=== PATIENT | male | born 1950 | race Caucasian/White ===

== ENCOUNTER → 2016-09-06 | Day surgery (SDC) | payer MEDICARE, OTHER ==
[~2016-09-06] MED LIST: ADVAIR 250-501 EAC1 IH; ALBUTEROL17 GM INH; ALEVE PO; ALLER-TEC10 M1 PO; AMIODARONE PO; ASPIRIN EC81 M1 PO; ASPIRIN PO; B12 INJECTION; BENTYL10 MG PO; BENZONATATE200 M1 PO; CERTAGEN PO; CHERATUSSIN AC118 ML PO; CLEOCIN150 MG PO; COMBIVENT MININEB INH; CYANOCOBAL1000 MCG/M INJ; DAZIDOX10 MG PO; DRONABINOL5 MG PO; DULCOLAX5 M1 PO; ELIQUIS5 MG PO; FISH OIL 1,0001 CAP PO; FOLIC ACID1 MG PO; GABAPENTIN600 MG PO; GRANISETRON SQ; GUAIATUSSIN AC L5 ML PO; GUAIFENESIN W-120 ML PO; HYDROCODON-ACE1 EAC5 PO; HYDROCODON-ACE1 EAC7 PO; HYDROCODONE-APA1 T55 PO; HYDROCODONE-CH473 ML PO; IPRAT-ALBUT 0.5-3 ML INH; LANOXIN125 MCG PO; LEVAQUIN750 MG PO; LEVOFLOXACIN500 MG PO; LOPRESSOR PO; MEDI-MECLIZINE25 M1 PO; MEGACE ORA40 MG/ML S PO; METOPROLOL SUCC25 MG PO; METOPROLOL TART25 MG PO; MILK OF MAGNESIA PO; MOBIC PO; MORPHINE SULFAT15 M1 PO; MUCUS RELIEF600 M1 PO; MULTI VITAMIN1 EACH PO; MULTIVITAM1 TAB.CH11 PO; NEURONTIN PO; NICOTINE TRANSD14 MG EXT; NORCO1 TAB 10/3 PO; OMEPRAZOLE40 M1 PO; OMNICEF300 MG PO; ONDANSETRO8 MG/UDTAB PO; PREDNISONE PO; PREDNISONE10 MG/DOSE PO; ROPINIROLE HCL0.5 MG PO; SYMBICORT INH; SYMBICORT80 INH; TECENTRIQ1200 MG/20; THIAMINE HCL100 M1 PO; TIZANIDINE HCL4 M1 PO; TOPROL XL PO; UNKNOWN BP MED; VITAMIN B-1000 MCG/1 INJ; VITAMIN D31000 UNI2 PO; XANAX0.5 MG PO; XANAX1 MG PO; ZANAFLEX4 M1 PO; [UNRECOGNIZED DRUG - OTHER] MC
--- NOTE | ~2016-09-06 | OR ---
Unit #: [id number] #: [id number] Patient: YVETTE THORNE [id number] [address] [place], [place] [address] [id number] O MR#: [id number] NAME: YVETTE THORNE ROOM: Date of Procedure: 09/06/2016 Admission Date: 09/06/2016 Surgeon: Walt Tatum M.D. : 1950 Attending Physician: Walt Tatum M.D. Referring Physician: Walt Tatum M.D. Primary Care Physician: Yola Rosenthal M.D. OPERATIVE REPORT PROCEDURE PERFORMED Bronchoscopy. INDICATIONS FOR PROCEDURE Known lung cancer with right lower lobe probable obstruction. INTRAOPERATIVE FINDINGS Right lower lobe partly obstructed by tumor and reaction to therapy. POSTOPERATIVE DIAGNOSIS Right lower lobe partly obstructed by tumor and reaction to therapy. DESCRIPTION OF PROCEDURE Mr. Thorne was brought to endoscopy suite and given anesthesia via a MAC. The scope was placed orally via a bite block after appropriate time-out was called. Vocal cords were within normal limits, but he had a fair amount of clear secretion above the vocal cords that I had to suction out before even went through the cords. His trachea was basically normal. His main samantha was little bit widened and there is some white necrotic looking areas on the right medial aspect of the main samantha. The left upper lobe including the lingula and left lower lobe were all within normal limits except for just a little bit of clear mucus plugging. The right lung starting at the mainstem was entirely distorted. The mucosa was erythematous, friable with intervening white necrotic scar like areas. I could actually see over a lot of this white scar like area into what appeared to be the opening for the right upper lobe, but I could not get around it to see how open it really was. Actually, it looked a little bit more open than previous views, but I could not get close enough to tell. The bronchus intermedius is definitely narrowed and it is lined by clearly abnormal mucosa with intervening areas as mentioned before of white scar like necrotic areas and red erythematous friable areas. Distal bronchus intermedius is quite distorted and the opening to what I assume to be the right lower lobe is present, but quite narrowed. I could not get the therapeutic scope down deep enough to really recognize subsegmental bronchi. Nonetheless, I really felt that was going to the right lower lobe. I therefore performed bronchial dilatation using the CRE balloon first to 6 and then to 7 x2. There did not seem to be any complications from this and bleeding from the balloon was very minimal. After the dilatation, the opening to the bronchus intermedius looked a little bit better to me; although, I really still did not try to push the therapeutic scope all the way down partly, because of some friability issues. This was simply washed again and I halted the procedure. I had some Unit #: [id number] #: [id number] Patient: YVETTE THORNE consideration of debriding some of this white scar like material, but after the balloon dilatation, this material was pushed up against the wall and really was not blocking the lumen anymore. Therefore, I left that alone. No obvious complications were noted from this procedure, but I will check a chest x-ray. Dictated by... Nevin Bland/tej TD: 09/06/2016 13:04 JOB #: [id number] CC: Schuyler Houser M.D. OPERATIVE REPORT X Walt Tatum MD X PROCEDURE OPERATIVE NOTE
--- NOTE | ~2016-09-06 | CR72 ---
[facility] A Service of [facility] & [facility] RADIOLOGY TEXT RESULTS PATIENT: YVETTE THORNE LOCATION: [employer]GER : [birth year] UNIT #: [id number] AGE: [address]: Walt Tatum MD SEX: M ORDER DR: [id number] [facility] [address] [facility]. [place], [place] [address] [id number] O MR#: [id number] Acc #: [id number] NAME: YVETTE THORNE : 1950 SEX: M STUDY DATE/TIME: 09/06/2016 13:04 UNIT: [facility] ROOM: STUDY DESCRIPTION: CR Chest Single View Portable Attending Physician: Walt Tatum M.D. Referring Physician: Walt Tatum M.D. Ordering Physician: Walt Tatum M.D. Primary Care Physician: Yola Rosenthal M.D. MEDICAL IMAGING REPORT This report is preliminary unless electronic signature is present INDICATION Pneumonia. Shortness of air. EXAM Single portable AP view of the chest. COMPARISON 08/27/2016 FINDINGS Abnormal right mediastinal border is unchanged from the prior study. There is volume loss in the right hemithorax as well as tenting of the right hemidiaphragm. This is unchanged from the prior study. Left lung is clear. IMPRESSION 1. No interval change. Abnormal right hilar border due to a right hilar/mediastinal mass. 2. No new pulmonary findings. Dictated by... Jasvir Ren M.D. THIS IS AN ELECTRONICALLY VERIFIED REPORT Jasvir Ren M.D. at 09/07/2016 10:52 AM CHRISTIANO/nisreen TD: 09/06/2016 14:56 JOB #: [id number] MEDICAL IMAGING REPORT COPY
== END | disposition home or self-care (01) ==
LOC: COPS 09:40
DX: C34.31 Malignant neoplasm of lower lobe, right bronchus or lung (principal)
CPT/HCPCS: 71010; 87070; 87205; 88108; 88305; J0171

== ENCOUNTER → 2016-09-24 | Outpatient (CLI) | payer MEDICARE, OTHER ==
--- NOTE | ~2016-09-24 | CT55 ---
[facility] A Service of [facility] & [facility] RADIOLOGY TEXT RESULTS PATIENT: YVETTE THORNE LOCATION: CCAT : [birth year] UNIT #: [id number] AGE: [address]: Julio Ash MD SEX: M ORDER DR: [id number] [facility] [address] [place], [place] [address] [id number] O MR#: [id number] Acc #: [id number] NAME: YVETTE THORNE : 1950 SEX: M STUDY DATE/TIME: 09/24/2016 10:59 UNIT: [facility] ROOM: STUDY DESCRIPTION: CT Chest W Con Attending Physician: Julio Ash M.D. Referring Physician: Julio Ash M.D. Ordering Physician: Julio Ash M.D. Primary Care Physician: Yola Rosenthal M.D. MEDICAL IMAGING REPORT This report is preliminary unless electronic signature is present EXAM Chest CT with contrast. DATE OF EXAM 09/24/2016 HISTORY Lung cancer. Evaluate for progression of malignancy. COMPARISON Comparison examination from 08/23/2016. TECHNIQUE Axial images were obtained with contrast. 100 mL of Isovue was used. Images were evaluated at lung and mediastinal windows. NOTE: This CT exam was performed with one or more of the following radiation dose reduction techniques: automatic exposure control, adjustment of mA and/or kV according to patient size, and iterative reconstruction. FINDINGS Chest images at mediastinal window show a stent in the superior vena cava. The stent is crimped, but does not appear be completely collapsed. A large mass is seen occupying the right side of the mediastinum and the right hilum. There is extrinsic compression of the right pulmonary artery and deformity of the pulmonary veins. There is atelectasis of the right upper lobe. Maximum diameter of the mediastinal component of the mass is 4.5 x 6 cm. This compares with 4.4 x 4.9 cm on the previous examination. In the right suprahilar area, there is a cavitary lesion that contains fistulous communication with the bronchial tree on the right. The cavitary component of this area has increased since the previous exam. No new or enlarging mediastinal lymph nodes are seen. There is a trace right pleural effusion. It was present before. No additional mass lesions are seen elsewhere. Fibrotic changes are noted at both lung bases. [facility]. [facility] A Service of [facility] RADIOLOGY TEXT RESULTS PATIENT: YVETTE THORNE LOCATION: [facility] : [birth year] UNIT #: [id number] AGE: [address]: Julio Ash MD SEX: M ORDER DR: infiltrates are less prominent than on the previous examination. This could reflect partial resolution of lymphangitic carcinomatosis or partial resolution of acute superimposed inflammatory component. IMPRESSION 1. Large mass right mediastinum surrounding the superior vena cava and right pulmonary artery and to a lesser extent surrounding the pulmonary veins on the right. The mass has enlarged significantly since the previous examination. 2. Progressive cavitation of the right upper lobe just above the hilum associated with this mass. 3. Infiltrates at both lung bases are still seen but show improvement since the previous examination. 4. Trace right pleural effusion is unchanged. Dictated by... Brian Kimble M.D. THIS IS AN ELECTRONICALLY VERIFIED REPORT Brian Kimble M.D. at 09/29/2016 5:01 AM THUY/nicole TD: 09/24/2016 20:57 JOB #: [id number] MEDICAL IMAGING REPORT COPY
--- NOTE | ~2016-09-24 | CT2 ---
[facility] A Service of [facility] RADIOLOGY TEXT RESULTS PATIENT: YVETTE THORNE [facility] [birth year] UNIT #: [id number] AGE: [address]: Julio Ash MD SEX: M ORDER DR: [id number] [facility] [address] [facility]. [place], [place] [address] [id number] O MR#: [id number] Acc #: [id number] NAME: YVETTE THORNE : 1950 SEX: M STUDY DATE/TIME: 09/24/2016 10:59 UNIT: [facility] ROOM: STUDY DESCRIPTION: CT Abd and Pelv W Cont Attending Physician: Julio Ash M.D. Referring Physician: Julio Ash M.D. Ordering Physician: Julio Ash M.D. Primary Care Physician: Yola Rosenthal M.D. MEDICAL IMAGING REPORT This report is preliminary unless electronic signature is present EXAM Abdomen and pelvis CT with contrast HISTORY Weakness for the past 2-3 months. Known lung cancer. Evaluate for abdomen or pelvis malignancy suspected. TECHNIQUE Axial images were obtained with intravenous contrast. 100 cc of Isovue was used. This CT exam was performed with one or more of the following radiation dose reduction techniques: automatic exposure control, adjustment of mA and/or kV according to patient size, and iterative reconstruction. COMPARISON STUDIES Study is correlated with a PET/CT scan 07/29/2016. FINDINGS No upper abdominal solid organ abnormalities are seen. There is no evidence of retroperitoneal adenopathy or ascites and no distended bowel loops are seen. In the pelvis, there is no evidence of adenopathy, mass or fluid collection. Advanced lumbar degenerative disc disease is seen. No destructive bone lesions are noted. IMPRESSION No evidence of metastatic disease in the abdomen or pelvis. [facility] A Service [facility] & [facility] RADIOLOGY TEXT RESULTS PATIENT: YVETTE THORNE [facility] : [birth year] UNIT #: [id number] AGE: [address]: Julio Ash MD SEX: M ORDER DR: Dictated by... Brian Kimble M.D. THIS IS AN ELECTRONICALLY VERIFIED REPORT Brian Kimble M.D. at 09/29/2016 5:01 AM RLF/jayce TD: 09/24/2016 20:35 JOB #: [id number] MEDICAL IMAGING REPORT COPY
== END | disposition home or self-care (01) ==
LOC: CCAT 10:06
DX: C34.91 Malignant neoplasm of unspecified part of right bronchus or lung (principal); D70.8 Other neutropenia; E83.110 Hereditary hemochromatosis; R91.8 Other nonspecific abnormal finding of lung field
CPT/HCPCS: 71260; 74177; Q9967

== ENCOUNTER 2016-10-07 15:33 | Inpatient (IN) | payer MEDICARE, OTHER ==
--- NOTE | ~2016-10-07 | HP ---
Unit #: [id number] #: [id number] Patient: YVETTE THORNE [id number] [address] [place], [place] [address] [id number] I MR#: [id number] NAME: YVETTE THORNE ROOM: 323 Age: 66 Sex: M Admission Date: 10/07/2016 : 1950 Attending Physician: Jovani Irwin M.D. Primary Care Physician: Yola Rosenthal M.D. HISTORY AND PHYSICAL ADMISSION DIAGNOSES 1. Hemoptysis. 2. Anemia. 3. History of lung cancer. 4. History of atrial fibrillation, on chronic anticoagulation. 5. History of coronary artery disease. 6. History of anxiety. 7. History of superior vena cava syndrome. 8. Hypertension. 9. History of alcohol abuse. HISTORY OF PRESENT ILLNESS Mr. Thorne is a very nice 66-year-old gentleman well known to our service secondary to prior admissions. He was discharged most recently from our service from August of this year. Comes back to the emergency room with complaints of hemoptysis. On initial evaluation in the emergency room, patient found with the hemoglobin of 7.0. Chest x-ray showed some questionable right lower lung infiltrate. The patient denies any fever, chills, and denies any nausea or vomiting. Denies any active chest pain, headache, dizziness, nausea, vomiting, diarrhea or abdominal pain. REVIEW OF SYSTEMS Negative except as above. PAST MEDICAL HISTORY Significant for: 1. History of lung cancer. 2. History of COPD. 3. History of tobacco use. 4. History of anxiety. 5. History of chronic pain issues. 6. History of coronary artery disease and atrial fibrillation. 7. History of superior vena cava syndrome. 8. History of hypertension. 9. History of alcohol abuse. PAST SURGICAL HISTORY Significant for ankle surgery. HOME MEDICATIONS Don't have any (1) ), but this will be verified by the pharmacy, and patient will be restarted accordingly. Unit #: [id number] #: [id number] Patient: YVETTE THORNE ALLERGIES Allergic to Wellbutrin. SOCIAL HISTORY No current history of tobacco, alcohol or illicit drugs. FAMILY HISTORY Unremarkable. PHYSICAL EXAMINATION GENERAL: Patient is a 66-year-old gentleman in no acute distress. VITAL SIGNS: BP 102/65, heart rate 86, respirations 13, temperature 98. HEENT: Head is atraumatic. Pupils equal, round and reactive to light and accommodation. Extraocular muscles intact. Oropharynx clear. NECK: Supple. No masses, no JVD, no bruits. CHEST: Diminished bilaterally, right definitely more than left. ABDOMEN: Soft, nontender, nondistended. EXTREMITIES: Lower extremities without any cyanosis, clubbing or edema. NEUROLOGICAL: Patient is grossly intact. No focal deficits. DIAGNOSTIC STUDIES IMAGING: Chest x-ray as above. LABORATORY: Chemistry unremarkable. Coagulation - PT 14.5, INR 1.4, PTT 30.1. Hematology as above. White count 17.9. ASSESSMENT AND PLAN 1. Hemoptysis with patient's known history of lung cancer: Will monitor H and H. Pulmonary, Dr. Francois and Dr. Tatum, to follow since they are patient's primary pulmonologists. Will discuss with cardiology regarding possibility of holding Eliquis. He is getting transfusion in the ER. Further recommendations per pulmonology. 2. Questionable pneumonia with white count of 17.9: Again, this could be just hemoptysis accumulation around the cancer. It looks like he does not look toxic to me. Need a (2) per ER physician. Again, will defer to pulmonology for antibiotics. Will check procalcitonin level. 3. History of coronary artery disease and atrial fibrillation: Was on chronic anticoagulation with Eliquis. Will consult Dr. Allen for possibly holding Eliquis. 4. History of hypertension: Continue home meds. 5. History of anxiety and depression: Continue home meds. 6. Remote history of alcohol abuse and tobacco use. 7. History of superior vena cava syndrome in the past. 8. History of chronic pain. 9. GI and DVT prophylaxis: Will put on PPI and put on SCDs. Dictated by Nevin Peterson Unit #: [id number] #: [id number] Patient: YVETTE THORNE TD: 10/08/2016 05:00 JOB #: [id number] HISTORY AND PHYSICAL X Jovani Irwin MD HISTORY AND PHYSICAL
--- NOTE | ~2016-10-07 | CO ---
Unit #: [id number] #: [id number] Patient: YVETTE THORNE [id number] [address] [id number] [facility]. [place], [place] [address] [id number] Demian MR#: [id number] NAME: YVETTE THORNE ROOM: 323 Age: 66 Sex: M Admission Date: 10/07/2016 : 1950 Attending Physician: Jovani Irwin M.D. Primary Care Physician: Yola Rosenthal M.D. CONSULTATION REPORT We were asked to see him by Dr. Irwin. REASON FOR CONSULTATION Hemoptysis and possible pneumonia. HISTORY OF PRESENT ILLNESS Mr. Thorne is a 66-year-old male, well known to me with a right lung cancer that is now recurrent. When I did the original bronchoscopy, he had subtotal obstruction of the right upper lobe and actually subtotal obstruction of the right middle lobe. This turned out to be non-small cell lung cancer. This was done on 04/06/2014. He underwent chemo and XRT and actually he did remarkably well. However, may be a couple of months ago, he started to deteriorate again. I did bronchoscopy on 09/06/2016 and he had severe distortion of the right lung. Mucosa was erythematous and friable with inter-weaning scar like areas, I really only got to see one bronchus. I did see a little bit into the right upper lobe, but what I am assuming was the bronchus intermedius was narrowed inline by this abnormal mucosa. Even the right lower lobe assumed to be the right lower lobe was narrowed. I did balloon it at that time, and he seemed to do okay for a little while, but it is also notable that a CAT scan at about this time had revealed worsened right mediastinal adenopathy with compression of the superior vena cava and he required a stent. He now has been noted to cough up some blood. Frankly, he is color blind and he really could not tell himself. He could not tell me what the sputum look like before he started coughing up blood. In fact, it was his who noted that he was coughing up blood. It is notable that she had also noticed that he seemed to have a little bit of blood per rectum lately. He is complaining of chest pain, fever, chills. PAST MEDICAL HISTORY Other past medical history is significant for as mentioned non-small cell lung cancer which was squamous, unresectable at that time. Probable COPD. He had PFTs in the office that revealed an FEV1 of 2.75, 71% predicted, and FVC 67% predicted ratio of 84, which is really more restrictive, but he probably did really have COPD. History of hypertension, low-back pain, tachycardia and actually he had atrial fibrillation, near syncope in the past. MEDICATIONS On admission had included Combivent q.4 p.r.n., Symbicort 2 puffs b.i.d. it should be 160/4.5. He had been on prednisone regularly. Amiodarone 200 mg p.o. b.i.d., Eliquis 5 mg p.o. b.i.d., Megace 40 mg p.o. b.i.d., guaifenesin with codeine p.r.n., Xanax 1 mg p.o. daily, Lanoxin 0.125 mg daily, Lortab 10/325 q.4 p.r.n., morphine p.r.n., oxycodone p.r.n., Unit #: [id number] #: [id number] Patient: YVETTE THORNE omeprazole 40 mg p.o. daily, Zanaflex 4 mg p.o. q.h.s. ALLERGIES Bupropion. SOCIAL HISTORY He had smoked up until recently even as recent as June and probably quit finely in June. FAMILY HISTORY Significant for nobody with lung disease. SYSTEMS REVIEW He has had leg swelling. Appetite has been poor. He has been trying to drink boost. Some nausea. No vomiting. No diarrhea. Occasional joint aches. All other systems are negative except as mentioned. Family says that he has been confused lately. PHYSICAL EXAMINATION GENERAL: He presents as an older male, in no acute distress. VITAL SIGNS: Temperature was 98.1, pulse 83, respirations 14, blood pressure 74/62. NECK: Without adenopathy. LUNGS: Evaluation of his lungs reveals that his breathing is not labored. He had inspiratory and expiratory rhonchi bilaterally throughout, better breath sounds on the left than the right. HEART: Actually regular with ectopy. ABDOMEN: Soft and nontender. EXTREMITIES: Reveal 2+ edema. NEUROLOGIC: He is awake and alert. DIAGNOSTIC STUDIES IMAGING STUDIES: Chest x-ray to my exam reveals a prominent right hilum. He has evidence of atelectasis right upper lobe. He has a right lower lobe infiltrate that actually is new. This was not seen. After the bronchoscopy, I did most recently in 08/2016. LABORATORY RESULTS: His white blood cell count on admission was 17.9, H and H 7 and 22, 218,000 platelets. His serum chemistry significant for BUN 22, creatinine 0.7, and bicarb 25. IMPRESSION 1. Hemoptysis. 2. Possible pneumonia. It is hard to say that this is an atelectasis, but certainly he did not have this after I did a bronchoscopy last month. 3. Right lung squamous cell carcinoma, unresectable and recurrent. 4. Anorexia. PLAN I would watch the hemoptysis for now. If he continues to cough up blood, then he will need an embolization. I am not sure there is much we can do with the scope that will help his hemoptysis right now. I agree with the concept of antibiotics. I would give him cefepime and one dose of vancomycin. Looking at his BUN and creatinine, we can probably do cefepime at least 2 g IV q.12, and then vancomycin only x1. I would like to hold the Eliquis if possible. Unit #: [id number] #: [id number] Patient: YVETTE THORNE Dictated by... Nevin Bland/tej TD: 10/08/2016 07:47 JOB #: [id number] CONSULTATION REPORT X Walt Tatum MD X CONSULTATION REPORT
--- NOTE | ~2016-10-07 | DS ---
Unit #: [id number] #: [id number] Patient: YVETTE THORNE [id number] [address] [address] [id number] I MR#: [id number] NAME: YVETTE THORNE ROOM: 323 Age: 66 Sex: M Admission Date: 10/07/2016 : 1950 Discharge Date: 10/08/2016 Attending Physician: Jovani Irwin M.D. Primary Care Physician: Yola Rosenthal M.D. DISCHARGE SUMMARY SHORT STAY SUMMARY Please add this addendum to H and P I dictated for this patient at the time of admission and make the summary as a short stay summary. DISCHARGE DIAGNOSIS Progressing lung cancer. SECONDARY DIAGNOSES 1. Hemoptysis. 2. Respiratory failure. CONSULTS DURING THIS HOSPITAL STAY 1. Dr. Tatum - Pulmonary. 2. Dr. Julio Ash - Oncology. The patient was evaluated by Dr. Ash from Oncology. Due to progressing lung cancer and rapid decline in general health of the patient, the patient was discharged home with hospice. Dr. Julio Ash wrote all the comfort measure medications at the time of the discharge. Dictated by... Jovani Irwin M.D. OC/df TD: 10/09/2016 09:32 JOB #: [id number] DISCHARGE SUMMARY X Jovani Irwin MD DISCHARGE SUMMARY
--- NOTE | ~2016-10-07 | EKG ---
PATIENT: YVETTE THORNE UNIT #: [id number] Ventricular Rate: 68 BPM Atrial Rate: 68 BPM P-R Interval: 168 ms QRS Duration: 114 ms Q-T Interval: 458 ms QTC Calculation(Bezet): 487 ms Calculated R Calvin: 80 degrees Calculated T Calvin: 56 degrees Diagnosis Line: Sinus rhythm with marked sinus arrhythmia Diagnosis Line: Incomplete right bundle branch block Diagnosis Line: Prolonged QT Diagnosis Line: Abnormal ECG Diagnosis Line: When compared with ECG of 25-AUG-2016 09:35, Diagnosis Line: Normal sinus rhythm has replaced Atrial Diagnosis Line: fibrillation Diagnosis Line: Incomplete right bundle branch block has replaced Diagnosis Line: Right bundle branch block Diagnosis Line: Criteria for Septal infarct are no longer Present Diagnosis Line: Confirmed by BERTHA CLEMENT MD ([id number]) on 10/09/2016 Diagnosis Line: 7:45:46 AM INTERPRETING MD: RACQUEL MICHELLE
--- NOTE | ~2016-10-07 | A ---
[facility] Nutrition Therapy DATE: 10/08/16 Patient: YVETTE THORNE Physician: SHUKRI Address: [address] Room/Bed: [address] [place] [address], Zip: [place] [address] Admit Date: 10/07/16 Date of : [birth year] Height: Weight: 166 75.54 NUTRITIONAL ASSESSMENT: REASON: 6 nutritional risk pts RE: 45# wt loss, eating poorly 66 yo male admitted for hemoptysis, anemia PMH: lung cancer (stage 3), atrial fibrillation, CAD, anxiety, HTN, COPD, superior vena cava syndrome, GERD, gastric ulcer Anthropometrics: HT: 6'1" WT: 75.5 kg (166#), BMI: 21.9 90%IBW Labs: Alb 2.0 Meds: Protonix, Bisacofyl, Marinol I/O & Bowel function: LBM 15 Skin Integrity: pressure ulcer (coccyx), bruising/scabs (BUE), dsg/bandaid (R ant neck/R post shoulder Edema: BLE 3+ Estimated Nutrition Needs: Increased energy and protein needs d/t pressure ulcer, wt loss Assessment: Chart reviewed, events noted. Pt's family was in the room during visit. Pt has lost a total of 45# over the past 3 years d/t lung cancer, the majority of wt loss has been since . Per pt's family, pt's UBW is 210#. Pt's family reports pt drinking Boost and mighty shakes at home. Pt reports loss of appetite and states appetite stimulants are not working. Pt's family requested specific appetite stimulant, RD unsure of specifics. Pt reports no N/V. RD discussed the option of enteral access placement if deemed appropriate by MD. Family was unsure whether or not this would be something pt would want. RD encouraged Ensure and Magic Cup. See recommendations below. Dx: Inadequate protein-energy intake RT poor appetite, clinical condition AEB 90%IBW, 45# wt loss. Intervention: 1. Ensure 2. Magic Cups 3. Advance diet [facility] Therapy DATE: 10/08/16 Patient: YVETTE THORNE Physician: SHUKRI Address: [address] Room/Bed: [address] [place] [address], Zip: [place] [address] Admit Date: 10/07/16 Date of : [birth year] Height: Weight: 166 75.54 Monitoring, Evaluation and Goals: 1. PO intake; consume ~75-100% of estimated energy needs 2. Weights; promote gradual weight gain, prevent further weight loss 3. Skin; promote healing Recommendations: 1. Once diet advances, order Chocolate Ensure TID with meals and Magic Cup BID 2. Recommend regular diet once medically feasible 3. Continue appetite stimulants. Suggest checking with pt's family about preferred appetite stimulant 4. If pt intake does not improve may consider obtaining enteral access if appropriate Pt is at a moderate nutritional risk. RD will f/u per protocol. Respectfully, CORINNE MANUEL, Experimental Mechanic Lucy Flores RD, LD Food and Nutritional Services [facility] cc: client file
--- NOTE | ~2016-10-07 | CO ---
Unit #: [id number] #: [id number] Patient: YVETTE THORNE [id number] [facility]. [place], [place] [address] [id number] MR#: [id number] NAME: YVETTE THORNE ROOM: 323 Age: 66 Sex: M Admission Date: 10/07/2016 : 1950 Attending Physician: Jovani Irwin M.D. Primary Care Physician: Yola Rosenthal M.D. Consultation Date: 10/07/2016 CONSULTATION REPORT REASON FOR CONSULTATION Anticoagulation management. HISTORY OF PRESENT ILLNESS This is a 66-year-old white male, who is known to Dr. Allen, who has a history of paroxysmal atrial fibrillation where he is on anticoagulation with Eliquis. He is known to have mediastinal and perihilar mass that was found per CT scan in 06/2016. Biopsy was positive for squamous cell carcinoma. He has superior vena cava syndrome and has undergone stent placement. The patient presents to the emergency room with hemoptysis. He is a poor historian, but says he has been coughing up blood that started within the last 1 hour. He does note a chronic cough that is vigorous at times. His hemoglobin was low at 7.0. He denies any symptoms of angina or palpitations. EKG found the patient to be in normal sinus rhythm. PAST MEDICAL HISTORY 1. Cardiac catheterization in [facility] in 04/2015, which showed LAD stenosis of 20% proximally. The circumflex left main and right coronary arteries normal. Ejection fraction of 55%. 2. 2D echocardiogram on 07/19/2015 with an ejection fraction of 55%. There is mild mitral regurgitation, mild tricuspid regurgitation, and right ventricular systolic pressure of 38 mmHg. There is a moderate pericardial effusion at that time. 3. Hypertension. 4. Paroxysmal atrial fibrillation, on anticoagulation with Eliquis. 5. COPD. 6. Right bundle-branch block. 7. Chronic anemia. 8. Hemochromatosis. 9. 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 10. SVC syndrome. 11. Former smoker. PAST SURGICAL HISTORY 1. Left ankle surgery. 2. Back surgery. SOCIAL HISTORY The patient is and lives with his . He quit smoking in 2015. Has a remote history of heavy alcohol use. Unit #: [id number] #: [id number] Patient: YVETTE THORNE FAMILY HISTORY Noncontributory. ALLERGIES Wellbutrin. HOME MEDICATIONS Symbicort 160/4.5 mcg 2 puffs b.i.d., omeprazole 40 mg daily, Megace 40 mg b.i.d., hydrocodone/acetaminophen 10/325 q.4 hours p.r.n., Zanaflex 4 mg q.h.s., oxycodone 10 mg q.4 hours p.r.n., amiodarone 200 mg b.i.d., Eliquis 5 mg daily b.i.d., Xanax 1 mg daily, guaifenesin/codeine 10 mL q.8 hours, Combivent mini nebs q.4 hours, dronabinol 5 mg b.i.d., bisacodyl 5 mg daily, Tecentriq last dose on 10/05/2016 the direction should be one every three weeks. PHYSICAL EXAMINATION VITAL SIGNS: Blood pressure 93/51, heart rate 72, temperature 98.3. GENERAL: This is a 66-year-old frail white male, who is in no acute respiratory distress. NEUROLOGIC: He is awake, alert, and oriented but noted for some forgetfulness. NECK: Trachea is midline. No thyromegaly or lymphadenopathy. No jugular venous distention. HEART: S1 and S2 with no murmurs, rubs, or clicks. Regular rate and rhythm. CHEST: With markedly decreased breath sounds in the right lung. Left lung with rhonchi. ABDOMEN: Soft and nontender with bowel sounds are present. EXTREMITIES: Without leg edema. DIAGNOSTIC STUDIES LABORATORY RESULTS: Glucose 106, BUN 22, creatinine 0.7, sodium 136, potassium 3.8. White count 17.9, hemoglobin 7.0, hematocrit 22.1, and platelet count 218. IMAGING STUDIES: Chest x-ray shows volume loss in the right hemothorax. A new infiltrate in the right mid to lower lobe, could represent pneumonia. CARDIOVASCULAR STUDIES: EKG; normal sinus rhythm with a rate of 68 beats per minute with incomplete right bundle-branch block. IMPRESSION 1. Hemoptysis x1 bout secondary to lung cancer superimposed on full anticoagulation with Eliquis. 2. Near-complete obstruction of right upper lobe mainstem bronchus from cancer of the lung. 3. Chronic obstructive pulmonary disease. 4. Atrial flutter converted to normal sinus rhythm with intraventricular conduction defect. 5. Ethyl alcohol and alcohol abuse by history. PLAN 1. Cardiology was consulted for anticoagulation management. We will stop anticoagulation permanently. I think the risk of blood loss is higher than the risk of stroke given the extent of malignant lesion in the bronchus. 2. Prognosis is grim. 3. The patient wants to be a full code at this time. Unit #: [id number] #: [id number] Patient: YVETTE THORNE 4. We will follow the patient with you. Thank you for allowing us to assist in this patient's care. Dictated by... Ana Lilia PortilloPDakotaRYovana for Nevin Zepeda/tej TD: 10/09/2016 00:07 JOB #: [id number] CONSULTATION REPORT X Forest Lenz APRN X CONSULTATION REPORT
--- NOTE | ~2016-10-07 | CO ---
Unit #: [id number] #: [id number] Patient: YVETTE THORNE [id number] [address] [id number] MR#: [id number] NAME: YVETTE THORNE ROOM: 323 Age: 66 Sex: M Admission Date: 10/07/2016 : 1950 Attending Physician: Jovani Irwin M.D. Primary Care Physician: Yola Rosenthal M.D. CONSULTATION REPORT CHIEF COMPLAINT Non-small cell lung cancer, stage III, squamous cell carcinoma, status post chemoradiation, now recurrent disease. Almost 9 cm mediastinal mass, biopsy positive for squamous cell. Superior vena cava syndrome, status post stent. Received Opdivo. Progressive disease, needs hospice. HISTORY OF PRESENT ILLNESS This is a 66-year-old male who started smoking as a teenager. He had been smoking one pack per day for 40 years. He quit recently. The patient had upper respiratory symptoms. The patient was diagnosed with non-small cell lung cancer during March 2014. There was a 6 cm mass in the mediastinum, very close to esophagus. It was unresectable. He was evaluated by multiple physicians. Case was discussed in multimodality. He received concurrent chemoradiation. Chemotherapy included Carbo/Taxol. Now, patient has recurrent disease, biopsy proven. It is squamous cell carcinoma. He has superior vena cava syndrome. He received stents. He received four doses Opdivo. He received one dose of Tecentriq. He came with short of breath, decline in performance status. He is not eating. REVIEW OF SYSTEMS CONSTITUTIONAL: Decline in performance status. Severe short of breath. EYES: No visual symptoms. EARS, NOSE AND THROAT: There is no runny nose or sore throat or difficulty hearing. CARDIOVASCULAR: No chest pain. No shortness of breath. No palpitations. No orthopnea. No PND. RESPIRATORY: No cough. No wheezing. No hemoptysis. GASTROINTESTINAL: No nausea, vomiting, diarrhea, constipation, hematochezia or melena. GENITOURINARY: No urinary frequency, hesitancy or urgency. No blood in the urine. MUSCULOSKELETAL: No muscle or joint pain. NEUROLOGIC: No headache. No numbness or tingling. No weakness. No seizure. PSYCHIATRIC: No anxiety, depression or mood disturbance. ENDOCRINE: No excessive urination or thirst. DERMATOLOGIC: No rash or change in the skin. ALLERGIC/IMMUNOLOGIC: No symptoms. HEMATOLOGIC/LYMPHATIC: Denies any symptoms. PAST MEDICAL HISTORY Unit #: [id number] #: [id number] Patient: YVETTE THORNE 1. Recurrent non-small cell lung cancer, progressive disease, not responding to Opdivo, one dose of Tecentriq. 2. Superior vena cava syndrome. 3. COPD. 4. CHF. 5. Anxiety. 6. Uncontrolled pain. SURGICAL HISTORY Ankle surgery when he was young. MEDICATIONS 1. Metoprolol. 2. Xanax. 3. Symbicort. 4. Requip. 5. Hydrocodone. ALLERGIES Wellbutrin. SOCIAL HISTORY As mentioned, has a significant history of smoking. Used to drink, quit many years ago. FAMILY HISTORY Negative for cancer. MEDICATIONS His current medications include: 1. Maxipime. 2. Solu-Cortef. 3. Zanaflex. 4. Amiodarone. 5. Roxicodone. 6. Protonix. 7. Combivent. 8. Megace. 9. Dulera. 10. IV fluids. PHYSICAL EXAMINATION VITAL SIGNS: Afebrile. Pulse is 100, respiratory rate 20, O2 sats on 4 L 95%, blood pressure 107/63. GENERAL: Patient is comfortable. ECOG is 4. The patient is pleasant. HEENT: Moist mucosa. Pupils equally reactive to light. Extraocular muscles intact. Sclerae anicteric. No obvious bleeding from nasal mucosa or oral mucosa. Scalp normal. Hearing normal. NECK: No JVD. No lymphadenopathy. LYMPHATIC/HEMATOLOGIC: There is no palpable adenopathy in the neck, axilla or inguinal area. CARDIOVASCULAR: S1, S2. Regular rate and rhythm. No S3 or S4. RESPIRATORY: Bilateral wheezes. ABDOMEN/GASTROINTESTINAL: Abdomen is soft, nontender, nondistended. No hepatosplenomegaly. EXTREMITIES: There is no clubbing, no cyanosis, no edema. No varicose veins. NEUROLOGICAL: Patient is alert, awake and oriented x3. Cranial nerves Unit #: [id number] #: [id number] Patient: YVETTE THORNE II-XII are intact. Sensory grossly intact. Motor is 4/5 in all four extremities. Gait is normal. Station is normal. Language is normal. Memory is normal. DTRs +2 in all four extremities. MUSCULOSKELETAL: No joint swelling. No bony tenderness. No muscle tenderness. SKIN: No petechiae, no rash, no ecchymosis. PSYCHIATRIC: No anxiety. No delusions or hallucinations. There is no agitation. Eye contact is normal. Affect is appropriate. There is no flight of ideas. DIAGNOSTIC STUDIES LABORATORY: WBC 15.4, hemoglobin 8.8, platelets 239. Creatinine is 0.8. LFTs normal. ASSESSMENT AND PLAN This is a 66-year-old male who has the following active issues: Non-small cell lung cancer: The patient was diagnoses in March 2014. It was stage III. He received concurrent chemoradiation. He has recurrent disease and received Opdivo. He has a progressive disease. DISCUSSION I had an extensive discussion with patient and multiple family members. His ECOG is 4. He is not eating. [facility] Dictated by... Nevin Smith/myron TD: 10/09/2016 09:11 JOB #: [id number] CONSULTATION REPORT X Julio Ash MD CONSULTATION REPORT
--- NOTE | ~2016-10-07 | CR72 ---
[facility] A Service of [facility] RADIOLOGY TEXT RESULTS PATIENT: YVETTE THORNE LOCATION: [facility] : [birth year] UNIT #: [id number] AGE: [address]: Jovani Irwin MD SEX: M ORDER DR: [id number] [facility] [address] [place], [place] [address] [id number] I MR#: [id number] Acc #: [id number] NAME: YVETTE THORNE : 1950 SEX: M STUDY DATE/TIME: 10/07/2016 15:03 UNIT: A PCU ROOM: 323 STUDY DESCRIPTION: CR Chest Single View Portable Attending Physician: Jovani Irwin M.D. Ordering Physician: Brian West M.D. Primary Care Physician: Yola Rosenthal M.D. MEDICAL IMAGING REPORT This report is preliminary unless electronic signature is present EXAM Portable chest. DATE OF EXAM 10/07/2016 INDICATIONS Shortness of air and hemoptysis for 1-2 days. History of lung cancer. REPORT AP portable views of the chest. COMPARISON Compared to 09/06/2016. FINDINGS There is volume loss in the right hemithorax. An SVC stent is present. There is improved aeration of the right upper lung. There are new infiltrates in the mid to lower right lung presumably due to pneumonia. The left lung is clear. There is no pneumothorax. Right arm PICC in the SVC. Heart size stable. IMPRESSION Stable volume loss in the right hemithorax. Improved aeration of the right upper lung. There is new infiltrate in the right atu-lw-ifzfr lung which presumably reflects pneumonia. Continued radiographic follow up is recommended. Dictated by... Brian Thurman Jr., M.D. THIS IS AN ELECTRONICALLY VERIFIED REPORT [facility] A Service of [facility] RADIOLOGY TEXT RESULTS PATIENT: YVETTE THORNE LOCATION: [facility] : [birth year] UNIT #: [id number] AGE: [address]: Jovani Irwin MD SEX: M ORDER DR: Brian Thurman Jr., M.D. at 10/11/2016 2:24 PM NILA/nicole TD: 10/07/2016 23:19 JOB #: [id number] MEDICAL IMAGING REPORT COPY
[2016-10-07 15:17] LABS: BASOPHIL% 0.1 % (0-2.5); HEMATOCRIT 22.1 % (38.0-50.0); LYMPHOCYTE# 0.6 X10e3 (1.0-3.5); LYMPHOCYTE% 3.2 % (17.0-45.0); MEAN CELL VOLUME 92.5 FL (83-96); MEAN CORPUSCULAR HEMOGLOBIN 29.1 PG (28-34); MEAN CORPUSCULAR HGB CONC 31.5 g/dL (30-36); MEAN PLATELET VOLUME 8.9 FL (6.5-11.5); MONOCYTE# 1.1 X10e3 (0-1.0); MONOCYTE% 6.2 % (3.0-12.0); NEUTROPHIL# 16.2 X10e3 (1.5-7.1); NEUTROPHIL% 90.5 % (40-75); PLATELET COUNT 280 X10e3 (140-420); RED BLOOD COUNT 2.39 X10e (3.90-5.60); RED CELL DISTRIBUTION WIDTH 17.6 % (11.0-15.5); WHITE BLOOD COUNT 17.9 X10e3 (4.0-10.5)
[2016-10-07 15:21] LABS: DIFF IND YES
[2016-10-07 15:25] LABS: INR 1.4; PARTIAL THROMBOPLASTIN TIME 30.1 SECONDS (23.5-31.3); PROTHROMBIN TIME (PATIENT) 14.5 SECONDS (9.6-11.5)
[~2016-10-07 15:33] MED LIST changes: -DRONABINOL5 MG PO; -DULCOLAX5 M1 PO; -IPRAT-ALBUT 0.5-3 ML INH; -TECENTRIQ1200 MG/20
[2016-10-07 15:37] LABS: PLATELET ESTIMATE NORMAL (NORMAL); RBC NORMAL YES
[2016-10-07 15:43] LABS: ALKALINE PHOSPHATASE 144 U/L (32-92); ALT (SGPT) 24 U/L (10-40); AST (SGOT) 24 U/L (10-42); BILIRUBIN, DIRECT 0.4 mg/dL (0.0-0.2); BILIRUBIN,INDIRECT 0.4 mg/dL (0.0-0.9); BILIRUBIN,TOTAL 0.8 mg/dL (0.2-2.0); BLOOD UREA NITROGEN 22 mg/dL (9-23); BUN/CREATININE RATIO 31.42; CALCIUM SERUM 10.1 mg/dL (8.4-10.2); CARBON DIOXIDE 25 mmol/L (22-31); CHLORIDE 103 mmol/L (100-111); CREATININE SERUM 0.7 mg/dL (0.6-1.4); GLOM FILT RATE Estimated ABOVE60 mL/min (>60); GLUCOSE FASTING 106 mg/dL (70-110); POTASSIUM 3.8 mmol/L (3.5-5.1); PROTEIN TOTAL SERUM 6.8 g/dL (6.0-8.3); SODIUM 136 mmol/L (135-145)
[2016-10-07] MEDS ORDERED: IPRAT-ALBUT 0.5-3 ML INH (17:52)
[2016-10-07] MEDS ORDERED: DRONABINOL5 MG PO (17:53)
[2016-10-07] MEDS ORDERED: DULCOLAX5 M1 PO (17:54)
[2016-10-07] MEDS ORDERED: TECENTRIQ1200 MG/20 (17:54)
[2016-10-08 06:07] LABS: HEMATOCRIT 25.7 % (38.0-50.0); HEMOGLOBIN 8.1 gm/dL (13.0-16.0); MEAN CELL VOLUME 90.5 FL (83-96); MEAN CORPUSCULAR HEMOGLOBIN 28.6 PG (28-34); MEAN CORPUSCULAR HGB CONC 31.6 g/dL (30-36); MEAN PLATELET VOLUME 8.8 FL (6.5-11.5); RED BLOOD COUNT 2.84 X10e (3.90-5.60); WHITE BLOOD COUNT 15.5 X10e3 (4.0-10.5)
[2016-10-08 06:55] LABS: PROCALCITONIN 0.26 NG/ML
[2016-10-08 07:45] LABS: BLOOD UREA NITROGEN 20 mg/dL (9-23); CALCIUM SERUM 10.2 mg/dL (8.4-10.2); CARBON DIOXIDE 25 mmol/L (22-31); CHLORIDE 103 mmol/L (100-111); CREATININE SERUM 0.8 mg/dL (0.6-1.4); GLOM FILT RATE Estimated ABOVE60 mL/min (>60); GLUCOSE FASTING 90 mg/dL (70-110); POTASSIUM 3.7 mmol/L (3.5-5.1); SODIUM 135 mmol/L (135-145)
[2016-10-08 16:51] LABS: HEMATOCRIT 28.1 % (38.0-50.0); HEMOGLOBIN 8.8 gm/dL (13.0-16.0)
== END 2016-10-08 20:50 | DRG 181 ==
LOC: CED 15:33 → CEDOF 16:26 → C3A PCU 18:02
PROVIDERS: Emergency Medicine; Hospitalist
DX: C34.11 Malignant neoplasm of upper lobe, right bronchus or lung (principal); R04.2 Hemoptysis; C78.1 Secondary malignant neoplasm of mediastinum; I31.3 Pericardial effusion (noninflammatory); D62 Acute posthemorrhagic anemia; I48.0 Paroxysmal atrial fibrillation; I48.92 Unspecified atrial flutter; J44.9 Chronic obstructive pulmonary disease, unspecified; I87.1 Compression of vein; Z79.01 Long term (current) use of anticoagulants; I25.10 Atherosclerotic heart disease of native coronary artery without angina pectoris; F41.9 Anxiety disorder, unspecified; I10 Essential (primary) hypertension; G89.29 Other chronic pain; F32.9 Major depressive disorder, single episode, unspecified; I08.1 Rheumatic disorders of both mitral and tricuspid valves; Z87.891 Personal history of nicotine dependence; F10.21 Alcohol dependence, in remission; D63.0 Anemia in neoplastic disease
CPT/HCPCS: 36415; 71010; 80048; 80076; 82308; 83605; 85014; 85018; 85025; 85027; 85610; 85730; 86850; 86900; 86901; 86923; 87040; 93005; 94640; 94760; 99285; J0692; J3370; P9016; Q0167